=== PATIENT | female | born 1955 | race Caucasian/White ===

== ENCOUNTER 2017-10-22 17:47 | Inpatient (IN) | payer MEDICAID ==
[2017-10-22] MEDS ORDERED: Sodium Chloride 0.9% 10 ML Syringe FLUSH PRN (18:16)
[2017-10-22] MEDS ORDERED: Albuterol/Ipratropium 3.0-0.5 MG/3 ML Neb Soln NEB ONE (18:16)
[2017-10-22] MEDS ORDERED: methylPREDNISolone Sodium Succinate 125 MG/2 ML SDV IVPUSH ONE (18:17)
[2017-10-22] MEDS ORDERED: Albuterol 0.083% 2.5 MG/3 ML Neb Soln NEB ONE (19:43)
--- NOTE | 2017-10-22 19:53 | EDM.PDOC ---
ED HPI GENERAL MEDICAL PROBLEM - General Chief Complaint: Respiratory Problem Stated Complaint: SOB/CONGESTION Time Seen by Provider: 10/22/17 18:05 Source of Information: Reports: Patient, Family History Limitations: Reports: No Limitations - History of Present Illness INITIAL COMMENTS - FREE TEXT/NARRATIVE: pt arrived with increased sob and very low o2 sats. Onset: Gradual, Other ( Pt has been ill for several days. She states the whole family was ill. She is coughing very hard. ) Duration: Day(s): Associated Symptoms: Reports: Cough, Fever/Chills, Malaise, Shortness of Breath Bilateral Chest Pain Score (Numeric/FACES): 4 - Related Data Allergies Allergy/AdvReac Type Severity Reaction Status Date / Time amoxicillin trihydrate Allergy Swelling Verified 10/22/17 18:04 [From Augmentin] erythromycin base Allergy Cannot Verified 10/22/17 18:04 Remember hydromorphone HCl Allergy Cardiac Verified 10/22/17 18:04 [From Dilaudid] Arrest potassium clavulanate Allergy Swelling Verified 10/22/17 18:04 [From Augmentin] Home Meds: Home Meds Albuterol Sulfate [Proair Hfa] 1 puff INH Q4HR PRN 10/22/17 [History] metFORMIN HCl [Metformin HCl] 500 mg PO DAILY 10/22/17 [History] metFORMIN [Glucophage] 1,000 mg PO BEDTIME 10/23/17 [History] Past Medical History Other HEENT History: fiber glass removed from eye Respiratory History: Reports: Asthma, Bronchitis, Recurrent, COPD, Pneumonia, Recurrent, SOB Other Gastrointestinal History: colitis - Past Surgical History Other Musculoskeletal Surgeries/Procedures:: ankle/leg surgery Social & Family History - Tobacco Use Smoking Status *Q: Heavy Tobacco Smoker Years of Tobacco use: 30 Packs/Tins Daily: 1.5 - Recreational Drug Use Recreational Drug Use: No ED ROS GENERAL - Review of Systems Review Of Systems: See Below Constitutional: Reports: Fever, Chills HEENT: Reports: No Symptoms Respiratory: Reports: Shortness of Breath, Cough Cardiovascular: Reports: No Symptoms Endocrine: Reports: No Symptoms GI/Abdominal: Reports: No Symptoms : Reports: No Symptoms Musculoskeletal: Reports: No Symptoms Skin: Reports: No Symptoms ED EXAM, GENERAL - Physical Exam Exam: See Below Free Text/Narrative:: pt arrived with marked sob and o2 sats in the 60s. She has been ill for several days. he is coughing markedly. Exam Limited By: No Limitations General Appearance: Alert, Anxious, Severe Distress Ears: Normal TMs Nose: Normal Inspection Throat/Mouth: Normal Inspection Head: Atraumatic Neck: Normal Inspection Respiratory/Chest: Decreased Breath Sounds, Wheezing Cardiovascular: Regular Rate, Rhythm GI/Abdominal: Soft, Non-Tender (Female) Exam: Deferred Rectal (Female) Exam: Deferred Back Exam: Normal Inspection Extremities: Normal Inspection Neurological: Alert, Oriented, Normal Cognition Psychiatric: Anxious, Other (pt is very sob. ) Course - Vital Signs Last Recorded V/S: Last Vital Signs Temp 36.2 C 10/24/17 19:00 Pulse 89 10/24/17 15:00 Resp 16 10/24/17 19:00 BP 107/62 10/24/17 19:00 Pulse Ox 87 L 10/24/17 19:31 - Orders/Labs/Meds Orders: Medication Orders Acetaminophen (Tylenol) 650 mg PO Q4H PRN PRN Reason: Pain Albuterol/Ipratropium (Duoneb 3.0-0.5 Mg/3 Ml) 3 ml NEB Q4H PRN PRN Reason: Shortness of Breath Last Admin: 10/23/17 20:37 Dose: 3 ml Admin: 10/23/17 09:34 Dose: 3 ml Admin: 10/23/17 01:55 Dose: 3 ml Azithromycin (Zithromax) 500 mg PO DAILY [facility] Last Admin: 10/24/17 16:55 Dose: 500 mg Benzonatate (Tessalon Perles) 100 mg PO TID PRN PRN Reason: Cough Guaifenesin (Mucinex) 600 mg PO TID [facility] Last Admin: 10/24/17 16:55 Dose: 600 mg Ceftriaxone Sodium 1 gm/ (Sodium Chloride) 50 mls @ 100 mls/hr IV Q24H [facility] Last Admin: 10/23/17 20:37 Dose: 100 mls/hr Lactobacillus Rhamnosus (Culturelle) 1 cap PO BID [facility] Metformin HCl (Glucophage) 500 mg PO QAM [facility] Last Admin: 10/24/17 10:40 Dose: 500 mg Metformin HCl (Glucophage) 1,000 mg PO DAILY@2200 [facility] Methylprednisolone Sodium Succinate (Solu-Medrol) 62.5 mg IVPUSH Q8H [facility] Stop: 10/25/17 04:00 Last Admin: 10/24/17 11:38 Dose: 62.5 mg Nystatin (Mycostatin) 5 ml PO QID [facility] Last Admin: 10/24/17 16:55 Dose: 5 ml Prednisone (Prednisone) 20 mg PO BIDMEALS [facility] Sodium Chloride (Saline Flush) 10 ml FLUSH ASDIRECTED PRN PRN Reason: Keep Vein Open Last Admin: 10/22/17 18:44 Dose: 10 ml Labs: Laboratory Tests 10/22/17 10/22/17 10/22/17 Range/Units 18:17 18:37 18:37 WBC 7.6 (4.5-11.0) K/uL RBC 4.90 (3.30-5.50) M/uL Hgb 14.3 (12.0-15.0) g/dL Hct 41.7 (36.0-48.0) % MCV 85 (80-98) fL MCH 29 (27-31) pg MCHC 34 (32-36) % Plt Count 278 (150-400) K/uL Neut % (Auto) 65 (36-66) % Lymph % (Auto) 17 L (24-44) % Jay % (Auto) 17 H (2-6) % Eos % (Auto) 0 L (2-4) % Baso % (Auto) 2 H (0-1) % Puncture Site Left brachial ABG pH 7.328 L (7.350-7.450) ABG pCO2 54.7 H (35.0-42.0) mmHg ABG pO2 74.0 L (75.0-100.0) mmHg ABG HCO3 27.9 H (22.0-26.0) mmol/L ABG Total CO2 24.9 (21.0-25.0) mmol/L ABG O2 Saturation 92.7 L (95.0-98.0) % ABG O2 Content 18.4 (15.0-23.0) %vol ABG Base Excess 1.3 mm/L ABG Hemoglobin 14.3 (12.0-16.0) g/dL ABG Oxyhemoglobin 91.6 % ABG Carboxyhemoglobin 0.7 (0.0-1.6) % ABG Methemoglobin 0.5 % Jonatan Test Passed O2 Delivery Device Nasal cannula Oxygen Flow Rate 4 L Sodium 137 L (140-148) mmol/L Potassium 4.3 (3.6-5.2) mmol/L Chloride 98 L (100-108) mmol/L Carbon Dioxide 30 (21-32) mmol/L Anion Gap 13.3 (5.0-14.0) mmol/L BUN 19 H (7-18) mg/dL Creatinine 0.8 (0.6-1.0) mg/dL Est Cr Clr Drug Dosing 55.73 mL/min Estimated GFR (MDRD) > 60 (>60) Glucose 198 H (74-106) mg/dL Calcium 8.8 (8.5-10.1) mg/dL Total Bilirubin 0.4 (0.2-1.0) mg/dL AST 32 D (15-37) U/L ALT 41 D (12-78) U/L Alkaline Phosphatase 84 (46-116) U/L Total Protein 6.8 (6.4-8.2) g/dL Albumin 3.5 (3.4-5.0) g/dL Globulin 3.3 (2.3-3.5) g/dL Albumin/Globulin Ratio 1.1 L (1.2-2.2) Meds: Medications Generic Name Dose Route Start Last Admin Trade Name Freq PRN Reason Stop Dose Admin Acetaminophen 650 mg 10/22/17 21:45 Tylenol PO Q4H PRN Pain Albuterol/Ipratropium 3 ml 10/22/17 23:45 10/23/17 20:37 Duoneb 3.0-0.5 Mg/3 Ml NEB 3 ml Q4H PRN Administration Shortness of Breath Azithromycin 500 mg 10/24/17 14:45 10/24/17 16:55 Zithromax PO 500 mg DAILY JESSICA Administration Benzonatate 100 mg 10/24/17 14:38 Tessalon Perles PO TID PRN Cough Guaifenesin 600 mg 10/24/17 14:45 10/24/17 16:55 Mucinex PO 600 mg TID JESSICA Administration Ceftriaxone Sodium 1 gm/ 50 mls @ 100 mls/hr 10/23/17 21:00 10/23/17 20:37 Sodium Chloride IV 100 mls/hr Q24H JESSICA Administration Lactobacillus Rhamnosus 1 cap 10/24/17 21:00 Culturelle PO BID JESSICA Metformin HCl 500 mg 10/24/17 09:00 10/24/17 10:40 Glucophage PO 500 mg QAM JESSICA Administration Metformin HCl 1,000 mg 10/24/17 22:00 Glucophage PO DAILY@2200 JESSICA Methylprednisolone Sodium Succinate 62.5 mg 10/24/17 12:00 10/24/17 11:38 Solu-Medrol IVPUSH 10/25/17 04:00 62.5 mg Q8H JESSICA Administration Nystatin 5 ml 10/24/17 16:00 10/24/17 16:55 Mycostatin PO 5 ml QID JESSICA Administration Prednisone 20 mg 10/25/17 08:00 Prednisone PO BIDMEALS JESSICA Sodium Chloride 10 ml 10/22/17 18:16 10/22/17 18:44 Saline Flush FLUSH 10 ml ASDIRECTED PRN Administration Keep Vein Open Discontinued Medications Generic Name Dose Route Start Last Admin Trade Name Freq PRN Reason Stop Dose Admin Acetaminophen 650 mg 10/22/17 20:17 10/22/17 20:42 Tylenol PO 10/22/17 20:18 650 mg NOW ONE Administration Albuterol 2.5 mg 10/22/17 19:43 10/22/17 19:53 Proventil Neb Soln NEB 10/22/17 19:44 2.5 mg ONETIME ONE Administration Albuterol/Ipratropium 3 ml 10/22/17 18:16 10/22/17 18:44 Duoneb 3.0-0.5 Mg/3 Ml NEB 10/22/17 18:17 3 ml ONETIME ONE Administration Benzonatate 200 mg 10/22/17 20:45 10/22/17 21:02 Tessalon Perles PO 10/22/17 20:46 200 mg ONETIME ONE Administration Guaifenesin/Codeine Phosphate 10 ml 10/22/17 20:04 10/22/17 20:56 Robitussin Ac PO 10/22/17 20:05 Not Given ONETIME ONE Sodium Chloride 1,000 mls @ 200 mls/hr 10/22/17 20:15 10/22/17 20:55 Normal Saline IV 200 mls/hr ASDIRECTED JESSICA Administration Ceftriaxone Sodium 1 gm/ 50 mls @ 100 mls/hr 10/22/17 20:11 01/02/18 20:55 Sodium Chloride IV 10/22/17 20:40 100 mls/hr ONETIME ONE Administration Sodium Chloride 1,000 mls @ 0 mls/hr 10/22/17 22:30 Normal Saline IV ASDIRECTED [facility] KVO Insulin Aspart 0 unit 10/23/17 21:00 10/24/17 08:52 Novolog SUBCUT Not Given 07,11,1630,21 [facility] Protocol Metformin HCl 500 mg 10/22/17 22:00 10/23/17 00:03 Glucophage PO 500 mg TID JESSICA Administration Metformin HCl 500 mg 10/23/17 08:00 10/23/17 20:37 Glucophage PO 500 mg TIDMEALS JESSICA Administration Metformin HCl 1,000 mg 10/24/17 17:00 10/24/17 18:38 Glucophage PO Not Given WITHDINNER [facility] Methylprednisolone Sodium Succinate 125 mg 10/22/17 18:17 10/22/17 18:44 Solu-Medrol IVPUSH 10/22/17 18:18 125 mg ONETIME ONE Administration Methylprednisolone Sodium Succinate 125 mg 10/23/17 03:00 10/24/17 03:55 Solu-Medrol IVPUSH 125 mg Q8H JESSICA Administration Oseltamivir Phosphate 30 mg 10/22/17 22:00 10/23/17 09:15 Tamiflu PO 10/28/17 22:01 30 mg BID JESSICA Administration - Re-Assessments/Exams Free Text/Narrative Re-Assessment/Exam: 10/22/17 20:14 pt arrived with marked sob. Her co2 on the blood gases was in the 50s. Her wbc is not high. Her influ was neg. Her chems looked ok. her chest xray did not reveal a imnfiltrate. 10/24/17 21:04 pt did not tolerat e the mask from the neb or the mask from the nonrebrather. she did well on the oximizer at 2.5 liters. Departure - Departure Time of Disposition: 20:15 Disposition: Admitted As Inpatient 66 Condition: Fair Clinical Impression: Bronchitis, Low O2 saturation, COPD (chronic obstructive pulmonary disease) - Discharge Information
[2017-10-22] MEDS ORDERED: Codeine/guaiFENesin 100mg-10 MG/5 ML Syrup 10 ML Cup PO ONE (20:04)
[2017-10-22] MEDS ORDERED: cefTRIAXone 1 GM in Sodium Chloride 0.9% 50 ML IV ONE (20:11)
[2017-10-22] MEDS ORDERED: Sodium Chloride 0.9% 1,000 ML IV SCH ×2 (20:15→22:30)
[2017-10-22] MEDS ORDERED: Acetaminophen 325 MG Tab PO ONE (20:17)
[2017-10-22] MEDS ORDERED: Benzonatate 100 MG Cap PO ONE (20:45)
[2017-10-22] MEDS ORDERED: Acetaminophen 325 MG Tab PO PRN (21:45)
[2017-10-22] MEDS ORDERED: metFORMIN 500 MG Tab PO SCH (22:00)
[2017-10-23] MEDS: Oseltamivir 30 MG Cap PO SCH ×2 (00:03→09:15)
--- NOTE | 2017-10-23 00:13 | HP ---
IDENTIFYING DATA: Serenity June is a 61-year-old single female from [place]. CHIEF COMPLAINT: Shortness of breath and cough. HISTORY OF PRESENT ILLNESS: This adult female with a reported history of obstructive pulmonary disease and ongoing tobacco use, has a week-long history of malaise, fevers, chills, cough, congestion, and scant sputum production with worsening shortness of breath, unresponsive to administration of p.r.n. albuterol metered-dose inhaler. She presented to the emergency room for evaluation and is now admitted. She had reported hypoxia with CO2 retention requiring oxygen administration by nasal cannula as well as repeated albuterol nebulizer therapies. She has had ongoing respiratory symptoms of 1 week's time, has not had previous pneumococcal or influenza vaccines, refusing these she notes multiple family members have had similar acute respiratory illnesses. She denies nasal congestion, sore throat, coryza, abdominal upset, nausea or emesis. She has had accompanying mild diarrhea without watery diarrhea, melena, or hematochezia. PAST MEDICAL HISTORY: Previous surgeries include a delivery and surgical repair of a complex left tib-fib fracture in the remote past. Additional chronic health problems include COPD and type 2 diabetes with oral pharmacologic therapies. ALLERGIES: REPORTED TO AMOXICILLIN, AUGMENTIN, DILAUDID, ERYTHROMYCIN, CODEINE AND CLINDAMYCIN. CURRENT MEDICATIONS: Albuterol metered-dose inhaler 2 puffs q.4 hours p.r.n. and metformin 500 mg p.o. t.i.d. HABITS: Tobacco use one and half packs per day of long-standing duration, has not smoked in 1 week's time with her acute respiratory illnesses. Caffeinated beverage intake average is 2 cans of carbonated diet root beer daily. Does not use coffee. Denies alcohol use. SOCIAL HISTORY: Currently living independently in her [place] home. A grandson resides with her. She does perform light household work, does not currently drive. Family assist with transportation and shopping when needed. She is able to ambulate up and down steps. Ambulation of longer distances requires use of a cane or a wheelchair to self propel. She has had no falls. FAMILY HISTORY: Notes multiple grandchildren with recent acute respiratory illnesses with having had exposure to these family members. REVIEW OF SYSTEMS: NEUROLOGIC: Does wear corrective lenses. Denies diabetic retinopathy, glaucoma, cataracts, stroke, seizures, focal weakness. She reports mild hearing loss, diabetic neuropathy with paresthesias in the feet. CARDIAC: Denies hypertension, congenital heart disease, rheumatic fever, murmurs, AK, chest pain, palpitations or syncope, chronic diabetes with oral pharmacologic therapy is noted. Does adhere to necessary dietary restrictions. RESPIRATORY: As above. No history of tuberculosis. Denies hemoptysis. GI: Reports a history of hepatitis A at 7 years of age. No chronic hepatobiliary disease, dyspepsia, nausea, emesis or chronic bowel problems. : Rises once to twice nightly to void. Mild urinary incontinence with cough is reported. MUSCULOSKELETAL: Without significant arthralgias. PHYSICAL EXAMINATION: GENERAL: Appearance is that of an adult female, appearing older than stated age of [age] years old. VITAL SIGNS: On arrival temperature 36.9, pulse 97, respiratory rate 24, blood pressure 117/62, O2 saturations 88% with supplemental O2 at 2 L by nasal cannula with earlier O2 sats on initial assessment of 60%. HEENT: Canals and TMs of the ears are unremarkable. Pupils are equal and reactive to light. Sclerae anicteric. No nasal congestion. No dental appliances. Mucosa is moist. NECK: No adenopathy or thyromegaly. Brisk carotid pulses. No bruits. No stridor. LUNGS: Resonant to percussion. Symmetrical aeration. Diminished sounds throughout. Mild expiratory rhonchi bilaterally. No retractions evident. No rales heard. HEART: Regular without murmurs or gallops. Normal S1, S2. ABDOMEN: Thin, soft, nontender, and nondistended. No organomegaly. Good femoral pulses. No abdominal bruits. No CVA pain. : Omitted. RECTAL: Omitted. EXTREMITIES: Chronic mild edematous changes in the lower extremities. Palpable arterial pulses at the posterior tibial and dorsal pedal regions noted. Sensory loss in the distal aspects of the feet confirmed by the patient. No ulcerations or open skin lesions. LABORATORY DATA: Labs on admission, WBC 7.6, hemoglobin 14.3, hematocrit 41.7, platelet count 278,000. ABGs on admission with nasal cannula oxygen at 4 L include a pH of 7.33, pCO2 of 54.7, PO2 74, bicarb 27.9 with CO level of 0.7. General chemistries include a sodium of 137, potassium 4.3, BUN 19, creatinine 0.8, creatinine clearance 56, glucose 198, calcium 8.8, alkaline phosphatase 84, AST 32. Nasal smear for influenza A and B are noted be negative. AP chest x-ray normal cardiac silhouette. No acute infiltrates consolidation or pulmonary lesions evident. IMPRESSIONS: 1. Acute respiratory infection presentation suggests probable viral influenza in spite of negative nasal smear. 2. Accompanying hypoxia with respiratory acidosis by ABGs. 3. Chronic obstructive pulmonary disease with ongoing tobacco use. 4. Type 2 diabetes. 5. Unvaccinated individual with the patient refusing Tdap, influenza, and pneumococcal vaccines. 6. Allergies as identified above. PLAN: The patient is admitted to the inpatient service on Med/Surg floor for continued supportive cares. I will provide IV fluids to maintain hydration, inhaled nebulizer therapies with use a DuoNeb and Tamiflu for suspected influenza presentation. Additionally, I will provide empiric antibiotics in the form of Rocephin. Respiratory precautions have been initiated. We will monitor blood sugars on a b.i.d. basis and maintain on standard metformin therapies with consistent carb diet provided. Anticipate hospital stay of 2 to 3 days with her acute respiratory infection with transition to home on oral medications as condition stabilizes. I encourage, the patient to abstain from use of tobacco, also I advised pneumococcal and influenza vaccine when acute respiratory infection begins to subside. Full code status is to be maintained. Sequential compression devices requested as DVT prevention. Ricardo Joseph MD /[id number]
[2017-10-23] MEDS: Albuterol/Ipratropium 3.0-0.5 MG/3 ML Neb Soln NEB PRN ×3 (01:55→20:37)
[2017-10-23] MEDS: methylPREDNISolone Sodium Succinate 125 MG/2 ML SDV IVPUSH SCH ×3 (02:00→20:37)
--- NOTE | 2017-10-23 06:42 | PN ---
DATE OF SERVICE: 10/23/2017 SUBJECTIVE: This 61-year-old female with a history of tobacco use and obstructive pulmonary disease, was admitted with respiratory symptoms late on 10/22/2017. She slept intermittently through the night. Reports increased level of comfort with her respiratory symptoms. She has had scant sputum production. No noted fever. Appetite is fair. OBJECTIVE: VITAL SIGNS: Temperature 35.3 degrees centigrade, pulse 79, blood pressure 117/61, respiratory rate 20, and O2 saturations 87% on room air at 4 L/minute nasal cannula oxygen with the patient at rest. LUNGS: Diminished air flow bilaterally. No wheezes or rales currently heard. No tachypnea noted. HEART: Regular without murmurs or gallops. EXTREMITIES: Moderate edema in the lower extremities. SKIN: Warm and pink. IMPRESSION AND PLAN: History of chronic obstructive pulmonary disease, ongoing tobacco use and acute exacerbation of chronic respiratory symptoms with accompanying respiratory distress secondary to viral syndrome, suspect influenza. We will continue with Tamiflu, has been provided empiric antibiotics as well, as well as oxygen and inhaled bronchodilator therapies; allow increase in activity as tolerated. We will monitor diabetic state and provide metformin for underlying hyperglycemia. Ricardo Joseph MD /[id number]
--- NOTE | 2017-10-23 09:10 | CR ---
Chest 1V Frontal INDICATION: sob COMPARISON: None FINDINGS: AP portable chest. Heart size normal. Lungs are clear. No pleural effusion. Wire projected over the left supraclavicular region.
[2017-10-23] MEDS: metFORMIN 500 MG Tab PO SCH ×3 (09:15→20:37)
[2017-10-23] MEDS: cefTRIAXone 1 GM in Sodium Chloride 0.9% 50 ML IV SCH (20:37)
[2017-10-23] MEDS: Insulin Aspart 100 Units/ML 3 ML Pen SUBCUT SCH (21:24)
--- NOTE | 2017-10-23 21:42 | PCM.SN ---
- Free Text/Narrative Note: Call from [address] [place] [address] Nursing; diabetes management a; Diabetes Type 2 p; order Metformin 500mg in am and 1000 mg po in evening blood glucose POC QID acandbed Insulin Low dose sling scale coverage. continue present plan of care.
[2017-10-24] MEDS: methylPREDNISolone Sodium Succinate 125 MG/2 ML SDV IVPUSH SCH ×3 (03:55→21:53)
[2017-10-24] MEDS: Insulin Aspart 100 Units/ML 3 ML Pen SUBCUT SCH (08:52)
[2017-10-24] MEDS: metFORMIN 500 MG Tab PO SCH ×2 (10:40→22:03)
[2017-10-24] MEDS ORDERED: Benzonatate 100 MG Cap PO PRN (14:38)
--- NOTE | 2017-10-24 14:47 | PCM.PN ---
- General Info Date of Service: 10/24/17 Functional Status: Reports: Pain Controlled, Tolerating Diet - Review of Systems Pulmonary: Reports: Shortness of Breath, Cough Systems Review Comment:: No acute events overnight. Shortness of breath has continued to improve during the hospital stay. Cough has been bothersome and kept her from sleeping well. No complaints of chest pain. She does report some pain in her mouth and is worried about early thrush. She has not been running fevers. Still requiring significant supplemental oxygen. - Patient Data Vitals - Most Recent: Last Vital Signs Temp 35.9 C 10/24/17 07:00 Pulse 81 10/24/17 07:00 Resp 20 10/24/17 07:00 BP 127/80 10/24/17 07:00 Pulse Ox 89 L 10/24/17 12:28 Weight - Most Recent: 59.511 kg I&O - Last 24 Hours: Intake & Output 10/23/17 10/24/17 10/24/17 22:59 06:59 14:59 Intake Total 590 530 Output Total 350 Balance 240 530 Med Orders - Current: Current Medications Acetaminophen (Tylenol) 650 mg PO Q4H PRN PRN Reason: Pain Albuterol/Ipratropium (Duoneb 3.0-0.5 Mg/3 Ml) 3 ml NEB Q4H PRN PRN Reason: Shortness of Breath Last Admin: 10/23/17 20:37 Dose: 3 ml Ceftriaxone Sodium 1 gm/ (Sodium Chloride) 50 mls @ 100 mls/hr IV Q24H [facility] Last Admin: 10/23/17 20:37 Dose: 100 mls/hr Sodium Chloride (Normal Saline) 1,000 mls @ 0 mls/hr IV ASDIRECTED JESSICA PRN Reason: KVO Metformin HCl (Glucophage) 500 mg PO QAM [facility] Last Admin: 10/24/17 10:40 Dose: 500 mg Metformin HCl (Glucophage) 1,000 mg PO WITHDINNER [facility] Methylprednisolone Sodium Succinate (Solu-Medrol) 62.5 mg IVPUSH Q8H [facility] Stop: 10/25/17 04:00 Last Admin: 10/24/17 11:38 Dose: 62.5 mg Sodium Chloride (Saline Flush) 10 ml FLUSH ASDIRECTED PRN PRN Reason: Keep Vein Open Last Admin: 10/22/17 18:44 Dose: 10 ml Discontinued Medications Acetaminophen (Tylenol) 650 mg PO NOW ONE Stop: 10/22/17 20:18 Last Admin: 10/22/17 20:42 Dose: 650 mg Albuterol (Proventil Neb Soln) 2.5 mg NEB ONETIME ONE Stop: 10/22/17 19:44 Last Admin: 10/22/17 19:53 Dose: 2.5 mg Albuterol/Ipratropium (Duoneb 3.0-0.5 Mg/3 Ml) 3 ml NEB ONETIME ONE Stop: 10/22/17 18:17 Last Admin: 10/22/17 18:44 Dose: 3 ml Benzonatate (Tessalon Perles) 200 mg PO ONETIME ONE Stop: 10/22/17 20:46 Last Admin: 10/22/17 21:02 Dose: 200 mg Guaifenesin/Codeine Phosphate (Robitussin Ac) 10 ml PO ONETIME ONE Stop: 10/22/17 20:05 Last Admin: 10/22/17 20:56 Dose: Not Given Sodium Chloride (Normal Saline) 1,000 mls @ 200 mls/hr IV ASDIRECTED [facility] Last Admin: 10/22/17 20:55 Dose: 200 mls/hr Ceftriaxone Sodium 1 gm/ (Sodium Chloride) 50 mls @ 100 mls/hr IV ONETIME ONE Stop: 10/22/17 20:40 Last Admin: 10/22/17 20:55 Dose: 100 mls/hr Insulin Aspart (Novolog) 0 unit SUBCUT 07,11,1630,21 [facility] PRN Reason: Protocol Last Admin: 10/24/17 08:52 Dose: Not Given Metformin HCl (Glucophage) 500 mg PO TID [facility] Last Admin: 10/23/17 00:03 Dose: 500 mg Metformin HCl (Glucophage) 500 mg PO TIDMEALS [facility] Last Admin: 10/23/17 20:37 Dose: 500 mg Methylprednisolone Sodium Succinate (Solu-Medrol) 125 mg IVPUSH ONETIME ONE Stop: 10/22/17 18:18 Last Admin: 10/22/17 18:44 Dose: 125 mg Methylprednisolone Sodium Succinate (Solu-Medrol) 125 mg IVPUSH Q8H [facility] Last Admin: 10/24/17 03:55 Dose: 125 mg Oseltamivir Phosphate (Tamiflu) 30 mg PO BID [facility] Stop: 10/28/17 22:01 Last Admin: 10/23/17 09:15 Dose: 30 mg - Exam Quality Assessment: Supplemental Oxygen General: Alert, Oriented, Cooperative, No Acute Distress Neck: Supple Lungs: Normal Respiratory Effort, Other (prolonged exp phase). No: Crackles, Wheezing Cardiovascular: Regular Rate, Regular Rhythm Extremities: No Pedal Edema Psy/Mental Status: Alert, Normal Affect - Problem List Review Problem List Initiated/Reviewed/Updated: Yes - My Orders Last 24 Hours: My Active Orders 10/24/17 12:00 methylPREDNISolone Sod Succ [Solu-MEDROL] 62.5 mg IVPUSH Q8H 10/24/17 14:38 Benzonatate [Tessalon Perles] 100 mg PO TID PRN 10/24/17 14:45 Azithromycin [Zithromax] 500 mg PO DAILY guaiFENesin [Mucinex] 600 mg PO TID 10/24/17 16:00 Nystatin [Mycostatin] 5 ml PO QID 10/24/17 21:00 Lactobacillus Rhamnosus GG [Culturelle] 1 cap PO BID 10/25/17 05:00 BASIC METABOLIC PANEL,BMP [CHEM] Timed CBC W/O DIFF,HEMOGRAM [HEME] Timed (1) 10/25/17 07:30 predniSONE 20 mg PO BIDAC - Plan Plan:: ASSESSMENT AND PLAN - Acute bronchitis with acute COPD exacerbation - clinically improving with current therapies versus admission but it appears to have plateaued over the past 24 hours. Still has significant hypoxia and supplemental oxygen requirement. Symptomatically is feeling better. -Antibiotic coverage with ceftriaxone and azithromycin -Tamiflu discontinued yesterday with long duration of symptoms prior to initiation and negative testing -IV steroids at reduced dose today -Transition to prednisone tomorrow -Supplement oxygen -Scheduled and as needed nebulizers -Guaifenesin -Nystatin for possible thrush Acute respiratory failure with hypoxia and hypercapnia - Hypercapnia moderately elevated but only minimal reduction in pH suggesting partially compensated respiratory acidosis. -Management as above Type 2 diabetes mellitus - well controlled by history. On only metformin. -Continue metformin Maintenance issues - - DVT prophylaxis - mechanical - GI prophylaxis - not indicated - Nutrition - regular diet Disposition - anticipate discharge to home after the hospital stay, hopefully in the next one or 2 days Zackery Canales M.D.
[2017-10-24] MEDS: Nystatin Susp 100,000 Unit/ML 5 ML UD Cup PO SCH ×2 (16:55→22:05)
[2017-10-24] MEDS: guaiFENesin 600 MG Tab.ER PO SCH ×2 (16:55→22:02)
[2017-10-24] MEDS: Azithromycin 250 MG Tab PO SCH (16:55)
[2017-10-24] MEDS ORDERED: metFORMIN 500 MG Tab PO SCH (17:00)
[2017-10-24] MEDS: cefTRIAXone 1 GM in Sodium Chloride 0.9% 50 ML IV SCH (21:56)
[2017-10-24] MEDS: Lactobacillus Rhamnosus GG (Probiotic) Cap PO SCH (22:02)
[2017-10-25] MEDS: Albuterol/Ipratropium 3.0-0.5 MG/3 ML Neb Soln NEB PRN (00:01)
[2017-10-25] MEDS: methylPREDNISolone Sodium Succinate 125 MG/2 ML SDV IVPUSH SCH (05:00)
[2017-10-25] MEDS: Nystatin Susp 100,000 Unit/ML 5 ML UD Cup PO SCH ×4 (08:30→21:48)
[2017-10-25] MEDS: predniSONE 20 MG Tab PO SCH ×2 (08:32→16:34)
[2017-10-25] MEDS: metFORMIN 500 MG Tab PO SCH ×2 (08:32→21:48)
[2017-10-25] MEDS: Azithromycin 250 MG Tab PO SCH (08:33)
[2017-10-25] MEDS: guaiFENesin 600 MG Tab.ER PO SCH ×3 (08:33→21:48)
[2017-10-25] MEDS: Lactobacillus Rhamnosus GG (Probiotic) Cap PO SCH ×2 (08:33→21:46)
--- NOTE | 2017-10-25 15:31 | PCM.PN ---
- General Info Date of Service: 10/25/17 Functional Status: Reports: Pain Controlled, Tolerating Diet - Review of Systems Pulmonary: Reports: Shortness of Breath Systems Review Comment:: No acute events overnight. Respiratory status slowly improving and she is down to 3 L via simple nasal cannula. No complaints of chest pain. Intermittent coughing spells. Has been up and walking around with supplemental oxygen. She has not had any fevers. Diarrhea has improved. She did have significant hyperglycemia this morning but does not want any insulin. - Patient Data Vitals - Most Recent: Last Vital Signs Temp 36.3 C 10/25/17 11:36 Pulse 71 10/25/17 11:36 Resp 16 10/25/17 11:36 BP 111/59 L 10/25/17 11:36 Pulse Ox 90 L 10/25/17 11:36 Weight - Most Recent: 59.511 kg I&O - Last 24 Hours: Intake & Output 10/25/17 10/25/17 10/25/17 06:59 14:59 22:59 Intake Total 480 360 Balance 480 360 Lab Results Last 24 Hours: Laboratory Results - last 24 hr 10/25/17 10/25/17 Range/Units 05:35 05:35 WBC 12.8 H (4.5-11.0) K/uL RBC 4.46 (3.30-5.50) M/uL Hgb 12.9 (12.0-15.0) g/dL Hct 38.7 (36.0-48.0) % MCV 87 (80-98) fL MCH 29 (27-31) pg MCHC 33 (32-36) % Plt Count 341 (150-400) K/uL Sodium 139 L (140-148) mmol/L Potassium 5.2 (3.6-5.2) mmol/L Chloride 101 (100-108) mmol/L Carbon Dioxide 29 (21-32) mmol/L Anion Gap 14.2 H (5.0-14.0) mmol/L BUN 30 H D (7-18) mg/dL Creatinine 0.8 (0.6-1.0) mg/dL Est Cr Clr Drug Dosing 55.79 mL/min Estimated GFR (MDRD) > 60 (>60) Glucose 335 H (74-106) mg/dL Calcium 9.3 (8.5-10.1) mg/dL Med Orders - Current: Current Medications Acetaminophen (Tylenol) 650 mg PO Q4H PRN PRN Reason: Pain Albuterol/Ipratropium (Duoneb 3.0-0.5 Mg/3 Ml) 3 ml NEB Q4H PRN PRN Reason: Shortness of Breath Last Admin: 10/25/17 00:01 Dose: 3 ml Azithromycin (Zithromax) 500 mg PO DAILY [facility] Last Admin: 10/25/17 08:33 Dose: 500 mg Benzonatate (Tessalon Perles) 100 mg PO TID PRN PRN Reason: Cough Guaifenesin (Mucinex) 600 mg PO TID [facility] Last Admin: 10/25/17 14:27 Dose: 600 mg Lactobacillus Rhamnosus (Culturelle) 1 cap PO BID [facility] Last Admin: 10/25/17 08:33 Dose: 1 cap Metformin HCl (Glucophage) 500 mg PO QAM [facility] Last Admin: 10/25/17 08:32 Dose: 500 mg Metformin HCl (Glucophage) 1,000 mg PO DAILY@2200 [facility] Last Admin: 10/24/17 22:03 Dose: 1,000 mg Nystatin (Mycostatin) 5 ml PO QID [facility] Last Admin: 10/25/17 10:59 Dose: 5 ml Prednisone (Prednisone) 20 mg PO BIDMEALS [facility] Last Admin: 10/25/17 08:32 Dose: 20 mg Sodium Chloride (Saline Flush) 10 ml FLUSH ASDIRECTED PRN PRN Reason: Keep Vein Open Last Admin: 10/22/17 18:44 Dose: 10 ml Discontinued Medications Acetaminophen (Tylenol) 650 mg PO NOW ONE Stop: 10/22/17 20:18 Last Admin: 10/22/17 20:42 Dose: 650 mg Albuterol (Proventil Neb Soln) 2.5 mg NEB ONETIME ONE Stop: 10/22/17 19:44 Last Admin: 10/22/17 19:53 Dose: 2.5 mg Albuterol/Ipratropium (Duoneb 3.0-0.5 Mg/3 Ml) 3 ml NEB ONETIME ONE Stop: 10/22/17 18:17 Last Admin: 10/22/17 18:44 Dose: 3 ml Benzonatate (Tessalon Perles) 200 mg PO ONETIME ONE Stop: 10/22/17 20:46 Last Admin: 10/22/17 21:02 Dose: 200 mg Guaifenesin/Codeine Phosphate (Robitussin Ac) 10 ml PO ONETIME ONE Stop: 10/22/17 20:05 Last Admin: 10/22/17 20:56 Dose: Not Given Sodium Chloride (Normal Saline) 1,000 mls @ 200 mls/hr IV ASDIRECTED [facility] Last Admin: 10/22/17 20:55 Dose: 200 mls/hr Ceftriaxone Sodium 1 gm/ (Sodium Chloride) 50 mls @ 100 mls/hr IV ONETIME ONE Stop: 10/22/17 20:40 Last Admin: 10/22/17 20:55 Dose: 100 mls/hr Ceftriaxone Sodium 1 gm/ (Sodium Chloride) 50 mls @ 100 mls/hr IV Q24H [facility] Last Admin: 10/24/17 21:56 Dose: 100 mls/hr Sodium Chloride (Normal Saline) 1,000 mls @ 0 mls/hr IV ASDIRECTED [facility] PRN Reason: KVO Insulin Aspart (Novolog) 0 unit SUBCUT 07,11,1630,21 [facility] PRN Reason: Protocol Last Admin: 10/24/17 08:52 Dose: Not Given Metformin HCl (Glucophage) 500 mg PO TID [facility] Last Admin: 10/23/17 00:03 Dose: 500 mg Metformin HCl (Glucophage) 500 mg PO TIDMEALS [facility] Last Admin: 10/23/17 20:37 Dose: 500 mg Metformin HCl (Glucophage) 1,000 mg PO WITHDINNER [facility] Last Admin: 10/24/17 18:38 Dose: Not Given Methylprednisolone Sodium Succinate (Solu-Medrol) 125 mg IVPUSH ONETIME ONE Stop: 10/22/17 18:18 Last Admin: 10/22/17 18:44 Dose: 125 mg Methylprednisolone Sodium Succinate (Solu-Medrol) 125 mg IVPUSH Q8H [facility] Last Admin: 10/24/17 03:55 Dose: 125 mg Methylprednisolone Sodium Succinate (Solu-Medrol) 62.5 mg IVPUSH Q8H [facility] Stop: 10/25/17 04:00 Last Admin: 10/25/17 05:00 Dose: 62.5 mg Oseltamivir Phosphate (Tamiflu) 30 mg PO BID [facility] Stop: 10/28/17 22:01 Last Admin: 10/23/17 09:15 Dose: 30 mg - Exam Quality Assessment: Supplemental Oxygen General: Alert, Oriented, Cooperative, No Acute Distress Neck: Supple Lungs: Normal Respiratory Effort, Wheezing (Moderate expiratory wheezing during the second half of expiratory phase) Cardiovascular: Regular Rate, Regular Rhythm GI/Abdominal Exam: No Distention Extremities: No Pedal Edema Psy/Mental Status: Alert, Normal Affect - Problem List Review Problem List Initiated/Reviewed/Updated: Yes - My Orders Last 24 Hours: My Active Orders 10/24/17 14:38 Benzonatate [Tessalon Perles] 100 mg PO TID PRN 10/24/17 14:45 Azithromycin [Zithromax] 500 mg PO DAILY guaiFENesin [Mucinex] 600 mg PO TID 10/24/17 16:00 Nystatin [Mycostatin] 5 ml PO QID 10/24/17 21:00 Lactobacillus Rhamnosus GG [Culturelle] 1 cap PO BID 10/25/17 08:00 predniSONE 20 mg PO BIDMEALS 10/25/17 15:27 Peripheral IV Discontinue [OM.PC] Routine 10/25/17 21:00 Cefdinir [Omnicef] 300 mg PO BID 10/26/17 05:00 BASIC METABOLIC PANEL,BMP [CHEM] Timed CBC W/O DIFF,HEMOGRAM [HEME] Timed (1) - Plan Plan:: ASSESSMENT AND PLAN - Acute bronchitis with acute COPD exacerbation - clinically improving and supplemental oxygen requirement decreasing. Tolerating current medications. Requesting to have IV medications changed to by mouth today. -Continue azithromycin -stop ceftriaxone, start cefdinir -Start prednisone today -Supplement oxygen -Scheduled and as needed nebulizers -Guaifenesin -Nystatin for possible thrush Acute respiratory failure with hypoxia and hypercapnia - clinically doing well at this time but still requiring 3 L of supplemental oxygen. -Management as above Type 2 diabetes mellitus - well controlled by history but elevated while on steroids. On only metformin. patient declines insulin therapy and Accu-Cheks at this time. -Continue metformin Maintenance issues - - DVT prophylaxis - mechanical - GI prophylaxis - not indicated - Nutrition - regular diet Disposition - anticipate discharge to home after the hospital stay, hopefully in the next 1 or 2 days Zackery Canales M.D.
[2017-10-25] MEDS: Cefdinir 300 MG Cap PO SCH (21:47)
[2017-10-26] MEDS: Nystatin Susp 100,000 Unit/ML 5 ML UD Cup PO SCH ×3 (05:11→15:42)
[2017-10-26 08:09] VITALS: BP 120/67
[2017-10-26] MEDS: Lactobacillus Rhamnosus GG (Probiotic) Cap PO SCH (08:16)
[2017-10-26] MEDS: predniSONE 20 MG Tab PO SCH ×3 (08:16→17:04)
[2017-10-26] MEDS: Azithromycin 250 MG Tab PO SCH (08:17)
[2017-10-26] MEDS: metFORMIN 500 MG Tab PO SCH (08:17)
[2017-10-26] MEDS: guaiFENesin 600 MG Tab.ER PO SCH ×2 (08:17→15:42)
[2017-10-26] MEDS: Cefdinir 300 MG Cap PO SCH (08:17)
--- NOTE | 2017-10-26 13:22 | PCM.DCSUM1 ---
Discharge Summary - Hospital Course Brief History: 61-year-old female with tobacco dependence, emphysema and diabetes who presented with cough and shortness of breath. She was admitted for management of COPD exacerbation and bronchitis. - Discharge Data Discharge Date: 10/26/17 Discharge Disposition: Home, Self-Care 01 Condition: Fair - Discharge Diagnosis/Problem(s) (1) Bronchitis SNOMED Code(s): 39600514 ICD Code: J40 - BRONCHITIS, NOT SPECIFIED ACUTE OR CHRONIC Status: Acute (2) Acute exacerbation of chronic obstructive pulmonary disease (COPD) SNOMED Code(s): 493954568 ICD Code: J44.1 - CHRONIC OBSTRUCTIVE PULMONARY DISEASE W (ACUTE) EXACERBATION Status: Acute (3) COPD (chronic obstructive pulmonary disease) SNOMED Code(s): 43659771 ICD Code: J44.9 - CHRONIC OBSTRUCTIVE PULMONARY DISEASE, UNSPECIFIED Status : Chronic Qualifiers: COPD type: emphysema Emphysema type: unspecified Qualified Code(s): J43.9 - Emphysema, unspecified (4) Type II diabetes mellitus SNOMED Code(s): 05095144 ICD Code: E11.9 - TYPE 2 DIABETES MELLITUS WITHOUT COMPLICATIONS Status: Acute Qualifiers: Diabetes mellitus complication status: without complication Diabetes mellitus mixer and scaler insulin use: without chcf use Qualified Code(s): E11.9 - Type 2 diabetes mellitus without complications - Patient Summary/Data Hospital Course: Serenity presented to the emergency room with several days of fever, cough and shortness of breath. Workup in the emergency room suggestive of upper respiratory infection with COPD exacerbation. Initially there was some concern for influenza and Tamiflu was initiated. She was also started on antibiotics. She received IV steroids and was admitted to the hospital for further management given her significant hypoxic respiratory failure. Initially she had very high oxygen requirements and was on an Oxymizer. Fortunately with her therapies initiated at the time of admission she did show some improvement both symptomatically and with regards to her oxygenation. The day after admission her Tamiflu was stopped because she was far outside of the window for any benefit. Her smear was negative in the emergency room anyway. I did add azithromycin to her antibiotic coverage to complement the ceftriaxone. Over the next couple of days we are able to transition her to oral medications. She has been afebrile during the hospital stay. Symptomatically she has improved steadily but does require ongoing supplemental oxygen. She was very interested in going home today so we set her up with home oxygen. She will need 7 additional doses of antibiotics which she will take in pill form. She has completed 5 days of steroids and these will be discontinued with no ongoing wheezing. During the hospital stay she did have hyperglycemia with blood sugars near 300. She declined insulin therapy and Accu-Cheks. I would anticipate her blood sugars will normalize once the prednisone therapy as dissipated from her system. - Patient Instructions Diet: Diabetic Diet Activity: As Tolerated Showering/Bathing: May Shower Notify Provider of: Fever, Increased Pain, Nausea and/or Vomiting Other/Special Instructions: 1. You were in the hospital for management of acute bronchitis and a COPD exacerbation. You have been improving with antibiotic and steroid therapy. You have completed sufficient therapy with the steroids. I do recommend 7 additional doses of antibiotic therapy with cefdinir. You should take this medication twice daily with food. Your next dose is due tonight. Your oxygen levels have not improved as quickly as we would have hoped. I recommend home oxygen therapy and this has been set up through [facility]. You should use 2 L/m during the day and while you sleep until you're oxygenation improves. This could take several days or even a couple of weeks. 2. Continue your other medications as previously prescribed. 3. Follow-up with Dr. Trotter early this week to recheck your oxygen levels and see if you can be done with your supplemental oxygen. 4. Please seek medical attention if you develop fever greater than 101, have sudden worsening of your shortness of breath or if you develop chest pain/pressure. - Discharge Plan Prescriptions/Med Rec: Benzonatate [Tessalon Perles] 100 mg PO TID PRN #20 cap PRN Reason: Cough Cefdinir [IJD: Cefdinir] 300 mg PO BID #7 capsule Lactobacillus Rhamnosus GG [Culturelle] 1 cap PO BID #30 cap Home Medications: Home Meds Albuterol Sulfate [Proair Hfa] 1 puff INH Q4HR PRN 10/22/17 [History] metFORMIN HCl [Metformin HCl] 500 mg PO DAILY 10/22/17 [History] metFORMIN [Glucophage] 1,000 mg PO BEDTIME 10/23/17 [History] Benzonatate [Tessalon Perles] 100 mg PO TID PRN #20 cap 10/26/17 [Rx] Cefdinir [IJD: Cefdinir] 300 mg PO BID #7 capsule 10/26/17 [Rx] Lactobacillus Rhamnosus GG [Culturelle] 1 cap PO BID #30 cap 10/26/17 [Rx] Patient Handouts: Chronic Obstructive Pulmonary Disease Exacerbation, Easy-to- Read, Cefdinir capsules Referrals: Enrique Trotter MD [Primary Care Provider] - (follow-up in 3-5 days to ensure that you continue to do better and recheck your oxygen levels) - Discharge Summary/Plan Comment DC Time >30 min.: Yes (40 - setting up home O2) - Patient Data Vitals - Most Recent: Last Vital Signs Temp 36.3 C 10/26/17 08:00 Pulse 71 10/26/17 08:00 Resp 16 10/26/17 08:00 BP 120/67 10/26/17 08:00 Pulse Ox 90 L 10/26/17 08:10 Weight - Most Recent: 59.511 kg I&O - Last 24 hours: Intake & Output 10/25/17 10/26/17 10/26/17 22:59 06:59 14:59 Intake Total 840 Balance 840 Lab Results - Last 24 hrs: Laboratory Results - last 24 hr 10/26/17 10/26/17 Range/Units 05:48 05:48 WBC 13.8 H (4.5-11.0) K/uL RBC 4.57 (3.30-5.50) M/uL Hgb 13.5 (12.0-15.0) g/dL Hct 39.4 (36.0-48.0) % MCV 86 (80-98) fL MCH 30 (27-31) pg MCHC 34 (32-36) % Plt Count 361 (150-400) K/uL Sodium 140 (140-148) mmol/L Potassium 4.4 (3.6-5.2) mmol/L Chloride 102 (100-108) mmol/L Carbon Dioxide 34 H (21-32) mmol/L Anion Gap 8.4 (5.0-14.0) mmol/L BUN 26 H (7-18) mg/dL Creatinine 0.7 (0.6-1.0) mg/dL Est Cr Clr Drug Dosing 63.76 mL/min Estimated GFR (MDRD) > 60 (>60) Glucose 203 H (74-106) mg/dL Calcium 9.7 (8.5-10.1) mg/dL Med Orders - Current: Current Medications Acetaminophen (Tylenol) 650 mg PO Q4H PRN PRN Reason: Pain Albuterol/Ipratropium (Duoneb 3.0-0.5 Mg/3 Ml) 3 ml NEB Q4H PRN PRN Reason: Shortness of Breath Last Admin: 10/25/17 00:01 Dose: 3 ml Azithromycin (Zithromax) 500 mg PO DAILY [facility] Last Admin: 10/26/17 08:17 Dose: 500 mg Benzonatate (Tessalon Perles) 100 mg PO TID PRN PRN Reason: Cough Cefdinir (Omnicef) 300 mg PO BID [facility] Last Admin: 10/26/17 08:17 Dose: 300 mg Guaifenesin (Mucinex) 600 mg PO TID [facility] Last Admin: 10/26/17 08:17 Dose: 600 mg Lactobacillus Rhamnosus (Culturelle) 1 cap PO BID [facility] Last Admin: 10/26/17 08:16 Dose: 1 cap Metformin HCl (Glucophage) 500 mg PO QAM [facility] Last Admin: 10/26/17 08:17 Dose: 500 mg Metformin HCl (Glucophage) 1,000 mg PO DAILY@2200 [facility] Last Admin: 10/25/17 21:48 Dose: 1,000 mg Nystatin (Mycostatin) 5 ml PO QID [facility] Last Admin: 10/26/17 10:40 Dose: 5 ml Prednisone (Prednisone) 20 mg PO BIDMEALS [facility] Last Admin: 10/26/17 08:16 Dose: 20 mg Sodium Chloride (Saline Flush) 10 ml FLUSH ASDIRECTED PRN PRN Reason: Keep Vein Open Last Admin: 10/22/17 18:44 Dose: 10 ml Discontinued Medications Acetaminophen (Tylenol) 650 mg PO NOW ONE Stop: 10/22/17 20:18 Last Admin: 10/22/17 20:42 Dose: 650 mg Albuterol (Proventil Neb Soln) 2.5 mg NEB ONETIME ONE Stop: 10/22/17 19:44 Last Admin: 10/22/17 19:53 Dose: 2.5 mg Albuterol/Ipratropium (Duoneb 3.0-0.5 Mg/3 Ml) 3 ml NEB ONETIME ONE Stop: 10/22/17 18:17 Last Admin: 10/22/17 18:44 Dose: 3 ml Benzonatate (Tessalon Perles) 200 mg PO ONETIME ONE Stop: 10/22/17 20:46 Last Admin: 10/22/17 21:02 Dose: 200 mg Guaifenesin/Codeine Phosphate (Robitussin Ac) 10 ml PO ONETIME ONE Stop: 10/22/17 20:05 Last Admin: 10/22/17 20:56 Dose: Not Given Sodium Chloride (Normal Saline) 1,000 mls @ 200 mls/hr IV ASDIRECTED [facility] Last Admin: 10/22/17 20:55 Dose: 200 mls/hr Ceftriaxone Sodium 1 gm/ (Sodium Chloride) 50 mls @ 100 mls/hr IV ONETIME ONE Stop: 10/22/17 20:40 Last Admin: 10/22/17 20:55 Dose: 100 mls/hr Ceftriaxone Sodium 1 gm/ (Sodium Chloride) 50 mls @ 100 mls/hr IV Q24H [facility] Last Admin: 10/24/17 21:56 Dose: 100 mls/hr Sodium Chloride (Normal Saline) 1,000 mls @ 0 mls/hr IV ASDIRECTED [facility] PRN Reason: KVO Insulin Aspart (Novolog) 0 unit SUBCUT 07,11,1630,21 [facility] PRN Reason: Protocol Last Admin: 10/24/17 08:52 Dose: Not Given Metformin HCl (Glucophage) 500 mg PO TID [facility] Last Admin: 10/23/17 00:03 Dose: 500 mg Metformin HCl (Glucophage) 500 mg PO TIDMEALS [facility] Last Admin: 10/23/17 20:37 Dose: 500 mg Metformin HCl (Glucophage) 1,000 mg PO WITHDINNER [facility] Last Admin: 10/24/17 18:38 Dose: Not Given Methylprednisolone Sodium Succinate (Solu-Medrol) 125 mg IVPUSH ONETIME ONE Stop: 10/22/17 18:18 Last Admin: 10/22/17 18:44 Dose: 125 mg Methylprednisolone Sodium Succinate (Solu-Medrol) 125 mg IVPUSH Q8H [facility] Last Admin: 10/24/17 03:55 Dose: 125 mg Methylprednisolone Sodium Succinate (Solu-Medrol) 62.5 mg IVPUSH Q8H [facility] Stop: 10/25/17 04:00 Last Admin: 10/25/17 05:00 Dose: 62.5 mg Oseltamivir Phosphate (Tamiflu) 30 mg PO BID [facility] Stop: 10/28/17 22:01 Last Admin: 10/23/17 09:15 Dose: 30 mg - Exam Quality Assessment: Reports: Supplemental Oxygen General: Reports: Alert, Oriented, Cooperative, No Acute Distress Lungs: Reports: Clear to Auscultation, Normal Respiratory Effort. Denies: Wheezing Cardiovascular: Reports: Regular Rate, Regular Rhythm Extremities: No Pedal Edema *Q Meaningful Use (DIS) - VTE *Q VTE Criteria *Q: - Stroke *Q Stroke Criteria *Q: - AMI *Q AMI Criteria *Q:
== END 2017-10-26 17:55 | disposition home or self-care (01) | DRG 190 ==
LOC: JP.ED 17:47 → JP.MS 20:22
PROVIDERS: ADMIT Family Medicine; ATTEND Internal Medicine
DX: J44.0 Chronic obstructive pulmonary disease with (acute) lower respiratory infection (principal); J96.01 Acute respiratory failure with hypoxia; J96.02 Acute respiratory failure with hypercapnia; J20.9 Acute bronchitis, unspecified; J44.1 Chronic obstructive pulmonary disease with (acute) exacerbation; F17.210 Nicotine dependence, cigarettes, uncomplicated; Z79.84 Long term (current) use of oral hypoglycemic drugs; E11.65 Type 2 diabetes mellitus with hyperglycemia; Z87.01 Personal history of pneumonia (recurrent); Z99.81 Dependence on supplemental oxygen; Z88.1 Allergy status to other antibiotic agents; Z88.5 Allergy status to narcotic agent; Z88.8 Allergy status to other drugs, medicaments and biological substances; Z53.29 Procedure and treatment not carried out because of patient's decision for other reasons
CPT/HCPCS: 36415; 36600; 71045; 71045-26; 80048; 80053; 81001; 82803; 85025; 85027; 87040; 87804; 94640; 94762; 96374; 99285-25; A9270-GY; J0696; J2930; J7030; J7050; J7620